=== PATIENT | male | born 1960 | race African-American/Black ===

== ENCOUNTER 2017-03-27 17:58 | Emergency (ER) | payer OTHER ==
[~2017-03-27] VITALS: Wt 90.7 kg
[2017-03-27] MEDS ORDERED: HYDROCHLOROTHIA25 M1 PO (18:25)
[2017-03-27] MEDS ORDERED: LISINOPRIL20 MG PO (18:25)
[2017-03-27] MEDS ORDERED: GOOD NEIGHBOR M25 M1 PO (18:55)
== END 2017-03-27 19:04 | disposition home or self-care (01) ==
LOC: ED 17:58
DX: H81.10 Benign paroxysmal vertigo, unspecified ear (principal); I10 Essential (primary) hypertension; Z79.899 Other long term (current) drug therapy

== ENCOUNTER → 2020-03-12 | Outpatient (CLI) | payer OTHER ==
[~2020-03-12] MED LIST: GOOD NEIGHBOR M25 M1 PO; HYDROCHLOROTHIA25 M1 PO; LISINOPRIL20 MG PO
== END | disposition home or self-care (01) ==
LOC: RAD 13:26
PROVIDERS: ATTEND Chiropractor
DX: M54.5 Low back pain (principal)

== ENCOUNTER → 2020-03-27 | Outpatient (CLI) | payer OTHER ==
[2020-03-27 10:13] LABS: BASO # 0.1 10*3/uL (0.0-0.1); BASO % 1.2 % (0.0-1.0); EOS # 0.1 10*3/uL (0.0-0.4); EOS % 2.4 % (1.0-4.0); HEMATOCRIT 48.2 % (42.0-52.0); LYMPH # 1.6 10*3/uL (1.3-4.4); LYMPH % 31.3 % (27.0-41.0); MEAN CELL VOLUME 84.1 fl (80.0-94.0); MEAN CORPUSCULAR HGB 26.9 pg (27.0-31.0); MEAN PLATELET VOLUME 9.9 fl (9.6-12.3); MONO # 0.3 10*3/uL (0.1-1.0); MONO % 6.7 % (3.0-9.0); NEUT # 2.9 10*3/uL (2.3-7.9); NEUT % 57.6 % (47.0-73.0); PLATELET COUNT AUTOMATED 300 10*3/uL (130-400); RED BLOOD COUNT 5.73 10*6/uL (4.50-5.90); RED CELL DISTRI WIDTH 13.8 % (0-14.5)
[2020-03-27 10:50] LABS: ALBUMIN 3.9 gm/dl (3.1-4.5); BUN 20 mg/dl (7-24); CHLORIDE 105 mmol/L (98-107); SODIUM 140 mmol/L (136-145)
[2020-03-27 10:58] LABS: ALKALINE PHOSPHATASE 87 U/L (45-117); CHOLESTEROL 240 mg/dL (<200); CREATININE 1.28 mg/dL (0.70-1.30); FREE T4 0.98 ng/dl (0.76-1.46); HDL CHOLESTEROL 65 mg/dl (40-60); LDL CHOLESTEROL 161 mg/dL (9-159); SGOT/AST 20 IU/L (3-35); SGPT/ALT 34 U/L (12-78); THYROID STIM HORMONE (HS) 0.822 uIU/ml (0.358-4.75); TOTAL PROTEIN 7.7 gm/dL (6.4-8.2); TRIGLYCERIDES 68 mg/dl (<150); VLDL CHOLESTEROL 14 mg/dL (6-40)
[2020-03-27 11:37] LABS: VITAMIN D, 25-HYDROXY 25.9 ng/mL (30-100)
[2020-03-28 09:10] LABS: CREATININE,URINE 147.8 mg/dL (Not Estab.)
== END | disposition home or self-care (01) ==
LOC: LAB 08:54 → MRI 09:00
PROVIDERS: ATTEND Internal Medicine
DX: I10 Essential (primary) hypertension (principal); M48.061 Spinal stenosis, lumbar region without neurogenic claudication

== ENCOUNTER → 2020-10-23 | Outpatient (CLI) | payer OTHER | END | disposition home or self-care (01) | LOC: COVID19 10-22 16:31 → LAB 09:30 → COVID19 09:30 | PROVIDERS: ATTEND Family Medicine | DX: U07.1 COVID-19 (principal) ==

== ENCOUNTER 2021-06-11 10:33 | Emergency (ER) | payer OTHER ==
[~2021-06-11] VITALS: Ht 180.3 cm; Wt 99.8 kg
[2021-06-11 11:30] LABS: BASO % 0.5 % (0.0-1.0); EOS # 0.2 10*3/uL (0.0-0.4); EOS % 2.1 % (1.0-4.0); HEMATOCRIT 43.1 % (42.0-52.0); LYMPH # 1.6 10*3/uL (1.3-4.4); LYMPH % 20.2 % (27.0-41.0); MEAN CORPUSCULAR HGB 27.2 pg (27.0-31.0); MEAN PLATELET VOLUME 9.7 fl (9.6-12.3); MONO # 0.5 10*3/uL (0.1-1.0); MONO % 6.1 % (3.0-9.0); NEUT # 5.5 10*3/uL (2.3-7.9); NEUT % 70.6 % (47.0-73.0); PLATELET COUNT AUTOMATED 309 10*3/uL (130-400); RED BLOOD COUNT 5.07 10*6/uL (4.50-5.90); RED CELL DISTRI WIDTH 14.1 % (0-14.5); WHITE BLOOD COUNT 7.8 10*3/uL (4.8-10.8)
[2021-06-11 11:44] LABS: ALKALINE PHOSPHATASE 80 U/L (45-117); BUN 13 mg/dl (7-24); CHLORIDE 112 mmol/L (98-107); CREATININE 0.96 mg/dL (0.70-1.30); POTASSIUM 3.9 mmol/L (3.5-5.1); SGOT/AST 16 IU/L (3-35); SGPT/ALT 34 U/L (12-78); SODIUM 141 mmol/L (136-145); TOTAL PROTEIN 7.7 gm/dL (6.4-8.2); URIC ACID 6.1 mg/dL (3.5-7.2)
[2021-06-11] MEDS ORDERED: CEPHALEXIN500 M1 PO (12:59)
== END 2021-06-11 13:11 | disposition home or self-care (01) ==
LOC: ED 10:33
PROVIDERS: Physician Assistant
DX: L03.116 Cellulitis of left lower limb (principal); Z79.899 Other long term (current) drug therapy

== ENCOUNTER → 2021-08-25 | Outpatient (CLI) | payer OTHER ==
[~2021-08-25] MED LIST changes: +CEPHALEXIN500 M1 PO
== END | disposition home or self-care (01) ==
LOC: LAB 15:43
PROVIDERS: ATTEND Internal Medicine
DX: M10.9 Gout, unspecified (principal)

== ENCOUNTER → 2024-07-24 | Outpatient (CLI) | payer OTHER ==
[2024-07-24 11:06] LABS: BASO % 0.7 % (0.0-1.0); EOS # 0.1 10*3/uL (0.0-0.4); EOS % 1.1 % (1.0-4.0); HEMATOCRIT 51.9 % (42.0-52.0); MEAN CELL VOLUME 86.8 fl (80.0-94.0); MEAN CORPUSCULAR HGB 27.6 pg (27.0-31.0); MEAN CORPUSCULAR HGB CONC 31.8 g/dl (33.0-37.0); MEAN PLATELET VOLUME 10.1 fl (9.6-12.3); MONO # 0.4 10*3/uL (0.1-1.0); MONO % 6.7 % (3.0-9.0); NEUT # 3.5 10*3/uL (2.3-7.9); NEUT % 64.1 % (47.0-73.0); PLATELET COUNT AUTOMATED 274 10*3/uL (130-400); RED BLOOD COUNT 5.98 10*6/uL (4.50-5.90); RED CELL DISTRI WIDTH 13.6 % (0-14.5); WHITE BLOOD COUNT 5.4 10*3/uL (4.8-10.8)
[2024-07-24 11:37] LABS: ALKALINE PHOSPHATASE 92 U/L (46-116); BUN 14 mg/dl (9-23); CHLORIDE 106 mmol/L (98-107); FREE T4 1.38 ng/dl (0.89-1.76); POTASSIUM 4.5 mmol/L (3.4-5.1); SGPT/ALT 28 U/L (5-49); TOTAL PROTEIN 7.5 gm/dL (6.0-8.0)
== END | disposition home or self-care (01) ==
LOC: LAB 10:27
PROVIDERS: ATTEND Internal Medicine
DX: Z12.5 Encounter for screening for malignant neoplasm of prostate (principal); R53.83 Other fatigue